=== PATIENT | male | born 1970 | race Caucasian/White ===

== ENCOUNTER 2020-06-13 15:01 | Day surgery (SDC) | payer BC ==
[2020-06-13] VITALS (7 sets, daily range): BP systolic 132–152; BP diastolic 85–110; PULSE 63–77; TEMP 97.7–98.1
[~2020-06-13] VITALS: Ht 190.5 cm; Wt 81.6 kg
[2020-06-13] MEDS ORDERED: MOTRIN 200200 MG/TAB PO (16:36)
[2020-06-13] MEDS ORDERED: NORCO 325 MG-51 TAB PO (17:31)
[2020-06-13] MEDS ORDERED: COLACE 100100 MG/CAP PO (17:31)
== END 2020-06-13 20:30 | disposition home or self-care (01) ==
LOC: SDCO 15:01 → SURG 19:30 → SDCO 20:30
DX: C62.92 Malignant neoplasm of left testis, unspecified whether descended or undescended (principal); Z88.1 Allergy status to other antibiotic agents; Z88.8 Allergy status to other drugs, medicaments and biological substances
CPT/HCPCS: OP; J0360; J0690; J1100; J1885; J2405; J2704; J3010; J7120; L8699